=== PATIENT | male | born 1970 | race Caucasian/White ===

== ENCOUNTER 2024-07-10 07:43 | Day surgery (SDC) | payer OTHER ==
[~2024-07-10] VITALS: Ht 182.9 cm; Wt 2000.0 kg
[~2024-07-10 07:43] MED LIST: LIDOCAINE/PF 2% 5 ML VIAL ONE; METH-387 PO; METO-408 PO; PROPOFOL 1% 20 ML VIAL IVP ONE; RIVA20TA PO
[2024-07-10] MEDS ORDERED: SODIUM CHLORIDE 0.9% 1,000 ML IV ONE (11:00)
== END 2024-07-10 11:00 | disposition home or self-care (01) ==
LOC: SURGERY 07:43
PROVIDERS: ATTEND Internal Medicine Gastroenterology
DX: Z12.11 Encounter for screening for malignant neoplasm of colon (principal); K62.1 Rectal polyp; K57.30 Diverticulosis of large intestine without perforation or abscess without bleeding; K64.8 Other hemorrhoids; I10 Essential (primary) hypertension; E66.01 Morbid (severe) obesity due to excess calories; Z86.711 Personal history of pulmonary embolism; Z79.899 Other long term (current) drug therapy; Z98.890 Other specified postprocedural states; Z68.43 Body mass index [BMI] 50.0-59.9, adult
CPT/HCPCS: 45380; 88305; J2704; J3490